=== PATIENT | male | born 1970 | race American Indian/Alaskan Native ===

== ENCOUNTER 2021-04-22 22:22 | Emergency (ER) | payer SELFPAY ==
[2021-04-22] MEDS ORDERED: ASPIRIN 325 MG TAB PO ONE (22:37)
[2021-04-22 23:30] LABS: Basophils % (Auto) 0.4 % (0.0-1.8); Eosinophils # (Auto) 0.1 K/mm3 (0.0-0.4); Eosinophils % (Auto) 0.9 % (0.0-4.3); Lymphocytes # (Auto) 3.1 K/mm3 (1.2-5.4); Lymphocytes % (Auto) 36.3 % (13.4-35.0); Mean Corpuscular HGB Conc 35 % (32-34); Mean Corpuscular Volume 95 fl (84-94); Monocytes # (Auto) 0.8 K/mm3 (0.0-0.8); Monocytes % (Auto) 9.8 % (0.0-7.3); Platelet Count 233 K/mm3 (140-440); Red Blood Count 4.82 M/mm3 (3.65-5.03); Red Cell Distribution Width 12.6 % (13.2-15.2)
--- NOTE | 2021-04-22 23:40 | XRay Report ---
CHEST 2 VIEWS 2253 INDICATION / CLINICAL INFORMATION: cp COMPARISON: None available. FINDINGS: SUPPORT DEVICES: None. HEART / MEDIASTINUM: No significant abnormality. LUNGS / PLEURA: No significant pulmonary or pleural abnormality. No pneumothorax. ADDITIONAL FINDINGS: No significant additional findings. IMPRESSION: No significant acute abnormality Signer Name: Trace Vela MD Signed: 04/22/2021 11:35 PM Workstation Name: [id number]
[2021-04-22 23:59] LABS: Alanine Aminotransferase 11 units/L (7-56); Albumin 4.7 g/dL (3.9-5); BUN/Creatinine Ratio 11; Blood Urea Nitrogen 13 mg/dL (9-20); Calcium 9.7 mg/dL (8.4-10.2); Hemolysis Index 6
--- NOTE | 2021-04-23 02:07 | Emergency Department Report ---
ED Chest Pain HPI - General Chief Complaint: Chest Pain Stated Complaint: CHEST PAIN Time Seen by Provider: 04/23/21 02:07 Source: patient Mode of arrival: Ambulatory Limitations: No Limitations - History of Present Illness Initial Comments: Patient is a 50-year-old male past medical history of non-STEMI who presents with chest pain and shortness of breath that is been going on since today. Patient states this pain started this morning it is a 3 out of 10 is located left side of his chest. 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 He says since then it has been harder to breathe when he walks and if he does not put pressure on his chest the pain is worse. No nausea no vomiting no other injuries - Related Data Allergies Allergy/AdvReac Type Severity Reaction Status Date / Time No Known Allergies Allergy Verified 04/23/21 02:20 Heart Score - HEART Score History: Slightly suspicious EKG: Non-specific Age: 45-65 Risk factors: 1-2 risk factors Troponin: < normal limit HEART Score: 3 - EKG Read Time Time EKG Completed: 10:40 EKG Read Time: 10:42 ED Review of Systems ROS: Stated complaint: CHEST PAIN Other details as noted in HPI Constitutional: denies: chills, fever Eyes: denies: eye pain, eye discharge, vision change ENT: denies: ear pain, throat pain Respiratory: denies: cough, shortness of breath, wheezing Cardiovascular: chest pain. denies: palpitations Endocrine: no symptoms reported Gastrointestinal: denies: abdominal pain, nausea, diarrhea Genitourinary: denies: urgency, dysuria Musculoskeletal: denies: back pain, joint swelling, arthralgia Skin: denies: rash, lesions Neurological: denies: headache, weakness, paresthesias Psychiatric: denies: anxiety, depression Hematological/Lymphatic: denies: easy bleeding, easy bruising ED Past Medical Hx - Past Medical History Previous Medical History?: No - Surgical History Past Surgical History?: No - Social History Smoking Status: Never Smoker Substance Use Type: Alcohol ED Physical Exam - General Limitations: No Limitations General appearance: alert, in no apparent distress - Head Head exam: Present: atraumatic, normocephalic - Eye Eye exam: Present: normal appearance - ENT ENT exam: Present: mucous membranes moist - Neck Neck exam: Present: normal inspection - Respiratory Respiratory exam: Present: normal lung sounds bilaterally. Absent: respiratory distress - Cardiovascular Cardiovascular Exam: Present: regular rate, normal rhythm, other (chest wall tenderness ). Absent: systolic murmur, diastolic murmur, rubs, gallop - GI/Abdominal GI/Abdominal exam: Present: soft, normal bowel sounds - Rectal Rectal exam: Present: deferred - Extremities Exam Extremities exam: Present: normal inspection - Back Exam Back exam: Present: normal inspection - Neurological Exam Neurological exam: Present: alert, oriented X3 - Psychiatric Psychiatric exam: Present: normal affect, normal mood - Skin Skin exam: Present: warm, dry, intact, normal color. Absent: rash ED Course Vital Signs 04/22/21 04/23/21 04/23/21 22:25 01:56 02:01 Temperature 98.1 F Pulse Rate 85 68 67 Respiratory 18 15 20 Rate Blood Pressure 151/109 143/99 Blood Pressure 150/96 [Left] O2 Sat by Pulse 99 97 97 Oximetry 04/23/21 04/23/21 04/23/21 02:15 02:31 02:38 Temperature Pulse Rate 65 67 78 Respiratory 16 15 Rate Blood Pressure 137/94 137/94 Blood Pressure [Left] O2 Sat by Pulse 97 97 Oximetry 04/23/21 04/23/21 04/23/21 02:39 02:45 03:01 Temperature Pulse Rate 68 64 Respiratory 17 13 17 Rate Blood Pressure 148/99 146/92 Blood Pressure [Left] O2 Sat by Pulse 98 97 97 Oximetry 04/23/21 04/23/21 04/23/21 03:20 03:31 03:45 Temperature Pulse Rate 76 68 70 Respiratory 13 15 18 Rate Blood Pressure 145/98 145/85 Blood Pressure [Left] O2 Sat by Pulse 98 99 Oximetry 04/23/21 04:00 Temperature Pulse Rate 72 Respiratory 10 L Rate Blood Pressure 156/87 Blood Pressure [Left] O2 Sat by Pulse 99 Oximetry JENNIFER score - Jennifer Score Age > 65: (0) No Aspirin use within the Past 7 Days: (1) Yes 3 or more CAD Risk Factors: (0) No 2 or more Angina events in past 24 hrs: (0) No Known CAD with more than 50% Stenosis: (0) No Elevated Cardiac Markers: (0) No ST Deviation Greater than 0.5mm: (0) No JENNIFER Score: 1 ED Medical Decision Making - Lab Data Result diagrams: 04/22/21 22:41 04/22/21 22:41 Lab Results 04/22/21 04/22/21 04/23/21 Range/Units 22:41 22:41 01:34 WBC 8.4 (4.5-11.0) K/mm3 RBC 4.82 (3.65-5.03) M/mm3 Hgb 16.0 H (11.8-15.2) gm/dl Hct 46.0 H (35.5-45.6) % MCV 95 H (84-94) fl MCH 33 H (28-32) pg MCHC 35 H (32-34) % RDW 12.6 L (13.2-15.2) % Plt Count 233 (140-440) K/mm3 Lymph % (Auto) 36.3 H (13.4-35.0) % [place] % (Auto) 9.8 H (0.0-7.3) % Eos % (Auto) 0.9 (0.0-4.3) % Baso % (Auto) 0.4 (0.0-1.8) % Lymph # (Auto) 3.1 (1.2-5.4) K/mm3 [place] # (Auto) 0.8 (0.0-0.8) K/mm3 Eos # (Auto) 0.1 (0.0-0.4) K/mm3 Baso # (Auto) 0.0 (0.0-0.1) K/mm3 Seg Neutrophils % 52.6 (40.0-70.0) % Seg Neutrophils # 4.4 (1.8-7.7) K/mm3 Sodium 141 (137-145) mmol/L Potassium 4.0 (3.6-5.0) mmol/L Chloride 101.2 (98-107) mmol/L Carbon Dioxide 27 (22-30) mmol/L Anion Gap 17 mmol/L BUN 13 (9-20) mg/dL Creatinine 1.2 (0.8-1.3) mg/dL Estimated GFR > 60 ml/min BUN/Creatinine Ratio 11 % Glucose 98 (75-100) mg/dL Calcium 9.7 (8.4-10.2) mg/dL Total Bilirubin 0.70 (0.1-1.2) mg/dL AST 15 (5-40) units/L ALT 11 (7-56) units/L Alkaline Phosphatase 78 (35-129) units/L Troponin T < 0.010 < 0.010 (0.00-0.029) ng/mL NT-Pro-B Natriuret Pep (0-450) pg/mL Total Protein 6.8 (6.3-8.2) g/dL Albumin 4.7 (3.9-5) g/dL Albumin/Globulin Ratio 2.2 % 04/23/21 Range/Units 02:38 WBC (4.5-11.0) K/mm3 RBC (3.65-5.03) M/mm3 Hgb (11.8-15.2) gm/dl Hct (35.5-45.6) % MCV (84-94) fl MCH (28-32) pg MCHC (32-34) % RDW (13.2-15.2) % Plt Count (140-440) K/mm3 Lymph % (Auto) (13.4-35.0) % [place] % (Auto) (0.0-7.3) % Eos % (Auto) (0.0-4.3) % Baso % (Auto) (0.0-1.8) % Lymph # (Auto) (1.2-5.4) K/mm3 [place] # (Auto) (0.0-0.8) K/mm3 Eos # (Auto) (0.0-0.4) K/mm3 Baso # (Auto) (0.0-0.1) K/mm3 Seg Neutrophils % (40.0-70.0) % Seg Neutrophils # (1.8-7.7) K/mm3 Sodium (137-145) mmol/L Potassium (3.6-5.0) mmol/L Chloride (98-107) mmol/L Carbon Dioxide (22-30) mmol/L Anion Gap mmol/L BUN (9-20) mg/dL Creatinine (0.8-1.3) mg/dL Estimated GFR ml/min BUN/Creatinine Ratio % Glucose (75-100) mg/dL Calcium (8.4-10.2) mg/dL Total Bilirubin (0.1-1.2) mg/dL AST (5-40) units/L ALT (7-56) units/L Alkaline Phosphatase (35-129) units/L Troponin T (0.00-0.029) ng/mL NT-Pro-B Natriuret Pep 211.5 (0-450) pg/mL Total Protein (6.3-8.2) g/dL Albumin (3.9-5) g/dL Albumin/Globulin Ratio % - EKG Data -: EKG Interpreted by Me - EKG Data 04/23/21 03:45 EKG shows sinus rhythm rate 81 with probable LVH abnormal T wave abnormality in the anterior leads impression abnormal EKG - Radiology Data Radiology results: image reviewed CT scan of chest: Shows no thromboembolism and no acute cardiopulmonary abnormality - Medical Decision Making Cdx:NSTEMI Ddx: PE. Rib fracture I will get CBC BMP 2 sets of troponin EKG and I will reevaluate the patient also get CT angio. 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 ED Disposition Clinical Impression: SOB (shortness of breath) Chest pain Qualifiers: Chest pain type: unspecified Qualified Code(s): R07.9 - Chest pain, unspecified Disposition: DC-01 TO HOME OR SELFCARE Is pt being admited?: No Does the pt Need Aspirin: No Condition: Stable Instructions: Nonspecific Chest Pain, Adult Referrals: PRIMARY CARE, [Primary Care Provider] - 3-5 Days (with your truck body builder apprentice )
[2021-04-23] MEDS ORDERED: MORPHINE 4 MG/1 ML INJ IV ONE (02:33)
[2021-04-23] MEDS ORDERED: SODIUM CHLORIDE 0.9% 500 ML 500 ML IV ONE (03:13)
[2021-04-23] MEDS ORDERED: SODIUM CHLORIDE 0.9% 500 ML 500 ML ONE (03:14)
--- NOTE | 2021-04-23 03:39 | Cat Scan Report ---
CTA CHEST WITH IV CONTRAST INDICATION: P.E. PROTOCOL!!! Patient complains of S.O.B. and chest pain CONTRAST: 100 cc Omnipaque 350 IV COMPARISON: Chest x-ray tonight Three-plane MIP reconstructions were produced. All CT scans at this location are performed using CT d ose reduction for ALARA by means of automated exposure control. FINDINGS: No mediastinal or hilar masses are seen. No pleural effusions are noted. Views of the upper abdomen show probable mild sludge in the gallbladder but no obvious acute abnormalities. No pneumoth orax or pneumomediastinum are seen. Lung crump are clear. Aorta is not well opacified for evaluation but shows no aneurysmal dilatation. No obvious evidence of dissection is seen. Good opacification of the pulmonary arterial system was achieved. I do not see evidence of pulmonary thromboembolism. IMPRESSION: No acute abnormalities are seen Signer Name: Trace Vela MD Signed: 04/23/2021 3:34 AM Workstation Name: [id number]
[2021-04-23 04:03] VITALS: BP 156/87
--- NOTE | 2021-04-23 10:07 | Electrocardiograph Report ---
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
== END 2021-04-23 04:04 | disposition home or self-care (01) ==
LOC: ED 22:22
DX: R06.02 Shortness of breath (principal); R07.89 Other chest pain; Z79.82 Long term (current) use of aspirin; Z79.899 Other long term (current) drug therapy
CPT/HCPCS: 36415; 71046; 71275; 80053; 83880; 84484; 85025; 93005; 99284; J7040; Q9967

== ENCOUNTER 2022-07-30 16:42 | Emergency (ER) | payer BC ==
[2022-07-30 18:07] VITALS: BP 136/82
--- NOTE | 2022-07-30 18:56 | XRay Report ---
CHEST 2 VIEWS INDICATION / CLINICAL INFORMATION: chest pain. COMPARISON: 03/06/22 FINDINGS: SUPPORT DEVICES: None. HEART / MEDIASTINUM: No significant abnormality. LUNGS / PLEURA: No significant pulmonary or pleural abnormality. No pneumothorax. ADDITIONAL FINDINGS: No significant additional findings. IMPRESSION: 1. No acute findings. Signer Name: Roderick Leroy MD Signed: 07/30/2022 6:51 PM Workstation Name: [id number]
[2022-07-30 19:18] LABS: Basophils # (Auto) 0.1 K/mm3 (0.0-0.1); Basophils % (Auto) 1.1 % (0.0-1.8); Eosinophils # (Auto) 0.3 K/mm3 (0.0-0.4); Eosinophils % (Auto) 2.7 % (0.0-4.3); Hematocrit 42.1 % (35.5-45.6); Hemoglobin 14.2 gm/dl (11.8-15.2); Lymphocytes # (Auto) 3.6 K/mm3 (1.2-5.4); Lymphocytes % (Auto) 38.2 % (13.4-35.0); Mean Corpuscular HGB Conc 34 % (32-34); Mean Corpuscular Volume 94 fl (84-94); Monocytes # (Auto) 0.8 K/mm3 (0.0-0.8); Monocytes % (Auto) 8.4 % (0.0-7.3); Platelet Count 276 K/mm3 (140-440); Red Cell Distribution Width 12.6 % (13.2-15.2)
[2022-07-30 19:33] LABS: Alanine Aminotransferase 15 units/L (7-56); Albumin 4.2 g/dL (3.9-5); BUN/Creatinine Ratio 10; Blood Urea Nitrogen 12 mg/dL (9-20); Calcium 9.4 mg/dL (8.4-10.2); Hemolysis Index 25
--- NOTE | 2022-08-02 16:43 | Electrocardiograph Report ---
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
== END 2022-07-31 04:32 | disposition left against medical advice (07) ==
LOC: ED 16:42
DX: R07.9 Chest pain, unspecified (principal); Z53.21 Procedure and treatment not carried out due to patient leaving prior to being seen by health care provider
CPT/HCPCS: 36415; 71046; 80053; 84484; 85025; 93005